=== PATIENT | male | born 1945 | race Caucasian/White ===

== ENCOUNTER 2018-02-08 16:49 | Inpatient (IN) | payer BC, OTHER ==
[~2018-02-08] VITALS: Ht 177.8 cm; Wt 104.8 kg
--- NOTE | 2018-02-08 17:05 | NUR ---
Pt ambulated to bed 6
--- NOTE | 2018-02-08 17:08 | NUR ---
Pt AAOx4 presents to ED c/o weakness to facial muscles x 2-3 weeks. Pt was referred to ED by PMD. Pt denies pain, but states "Everytime I chew my food, I take a couple bites and I'm too tired to continue eating." Skin pink dry and warm, breathing even and unlabored. No other injuries/complaints per pt/noted. Will continue to monitor.
[2018-02-08 17:10] VITALS: BP_SYST 175
--- NOTE | 2018-02-08 17:14 | NUR ---
ER at bedside examining patient.
[2018-02-08 17:54] LABS: EOSINOPHILS # (AUTO) 0.2 K/uL (0.0-0.4); EOSINOPHILS % (AUTO) 3.8 % (0.0-4.0); HEMATOCRIT 45.6 % (36-54); HEMOGLOBIN 15.7 g/dL (14.0-18.0); LYMPHOCYTES # (AUTO) 1.7 K/uL (1.0-5.5); LYMPHOCYTES % (AUTO) 33.4 % (20.5-51.5); MEAN CORPUSCULAR HEMOGLOBIN 30 pg (27-31); MEAN CORPUSCULAR HGB CONC 34 % (32-36); MEAN CORPUSCULAR VOLUME 87 fL (79.0-98.0); MONOCYTES # (AUTO) 0.4 K/uL (0.0-1.0); PLATELET COUNT (AUTO) 190 K/uL (130-430); RED BLOOD CELL COUNT(AUTO) 5.24 MIL/uL (4.2-6.2); RED CELL DISTRIBUTION WIDTH 13.8 % (9.0-15.0)
[2018-02-08 18:01] LABS: BASOPHILS % (AUTO) 0.4 % (0.0-2.0); CALCIUM 9.4 mg/dL (8.4-11.0); CREATININE 0.89 mg/dL (0.55-1.30); NEUTROPHILS # (AUTO) 2.7 K/uL (1.8-7.7); NEUTROPHILS % (AUTO) 54.4 % (40.0-70.0)
[2018-02-08 18:07] LABS: ALBUMIN 4.1 g/dL (3.4-4.8)
[2018-02-08 18:08] LABS: INR 1.1 (0.80-1.20); PROTHROMBIN TIME 10.9 SECS (9.5-12.5)
[2018-02-08] MEDS ORDERED: POTASSIUM CHLORIDE 20 MEQ/PKT PACKET PO ONE (18:30)
--- NOTE | 2018-02-08 18:36 | NUR ---
Potassium given to pt, tolerated well
[2018-02-08] MEDS ORDERED: NOR10 PO (18:43)
[2018-02-08] MEDS ORDERED: TAMS-11 PO (18:43)
[2018-02-08] MEDS ORDERED: DOCU-144 PO (18:43)
[2018-02-08] MEDS ORDERED: tramadol PO (18:43)
[2018-02-08] MEDS ORDERED: GLU500 PO (18:43)
[2018-02-08] MEDS ORDERED: VALS160T2 PO (18:43)
[2018-02-08] MEDS ORDERED: ASPI-1153 PO (18:43)
[2018-02-08] MEDS ORDERED: VITD2000 PO (18:43)
[2018-02-08] MEDS ORDERED: LIP10 PO (18:43)
[2018-02-08] MEDS ORDERED: METO50TA7 PO (18:43)
[2018-02-08] MEDS ORDERED: GABA-531 PO (18:43)
[2018-02-08] MEDS ORDERED: MULT-1117 PO (18:43)
--- NOTE | 2018-02-08 18:43 | NUR ---
Medication reconciliation completed with information provided by patient. Any prior medication reconciliation on file was reviewed and corrected.
[2018-02-08 18:45] LABS: ERYTHROCYTE SEDIMENTATION RATE 6 MM/HR (0-15)
--- NOTE | 2018-02-08 19:10 | NUR ---
ADMISSION NOTE Received patient from ER via lang, received report from CARBONIZER. Patient admitted with diagnosis of diplopia and dysarthia. Able to ambulate from doorway to bed independently without assistance. Patient's at the bedside with the patient. Patient oriented to hospital routine, call light, toileting and safety-patient verbalized understanding.
[2018-02-08 19:15] VITALS: BP_SYST 135
--- NOTE | 2018-02-08 19:17 | NUR ---
Patient will be admitted to [facility]. Admitted to Med Surg unit. Will go to room 116B. Belongings list completed. Summary report printed. Report will be given at bedside.
--- NOTE | 2018-02-08 19:35 | NUR ---
ADMISSION NOTE RECEIVED ADMISSION REPORT FROM ADMISSION NURSE. PATIENT AWAKE AND ALERT, ABLE TO VERBALIZE NEEDS A/0X4, BREATHING EVEN AND UNLABORED, NO PAIN NOTED, NEUROLOGIC ASSESSMENT DONE, PATIENT ON STABLE CONDITION. EXPLAINED THE PLAN OF CARE AND STATED UNDERSTANDING, WITH IV ON THE RAC 20G. ORIENTED TO THE FACILITY AND POLICIES, WILL CONTINUE TO MONITOR CALL LIGHT WITHIN REACH
--- NOTE | 2018-02-08 19:35 | NUR ---
NEURO CHECK DONE PATIENT WITH DROOPING OF THE LEFT EYE, PATIENT ABLE TO TALK WITH NO SLURRING OF SPEECH, ABLE TO TURN HEAD FROM SIDE TO SIDE WITH A LITTLE DISCOMFORT NAD PAIN LEVEL OF 2/10, AND STATED THAT IT IS TOLERABLE. UPPER AND LOWER EXTREMITIES WITH EQUAL AVIONICS SAFETY INSPECTOR AND STRENGTH, CAN EXTEND AND FLEX WITHOUT PAIN DIFFICULTY. PATIENT ABLE TO WALK WITH STEADY GAIT.
[2018-02-08 20:00] VITALS: BP_SYST 135
--- NOTE | 2018-02-08 22:30 | NUR ---
RN ROUNDS PATIENT ON BED SLEEPING AND RESTING BREATHING AND UNLABORED ON STABLE CONDITION NO COMPLAINTS NOTED WILL CONTINUE TO MONITOR CALL LIGHT WITHIN REACH.
--- NOTE | 2018-02-09 00:07 | NUR ---
RN ROUNDS PATIENT ON BED SLEEPING AND RESTING, ON STABLE CONDITION, NO COMPLAINTS NOTED OF NOW, WILL CONTINUE TO MONITOR. CALL LIGHT WITHIN REACH.
[2018-02-09 00:13] VITALS: BP_SYST 155
--- NOTE | 2018-02-09 00:28 | NUR ---
SPOKE WITH JAMEEL FOR CONSULT WITH DR FELDMAN.
[2018-02-09] MEDS: D5/0.45 NS 1,000 ML IV SCH ×2 (01:30→11:59)
--- NOTE | 2018-02-09 02:15 | NUR ---
RN ROUNDS PATIENT SLEEPING AND RESTING, ON STABLE CONDITION, BREATHING EVEN AND UNLABORED, WILL CONTINUE TO MONITOR.
--- NOTE | 2018-02-09 02:50 | NUR ---
PATIENT AMBULATED TO THE BATHROOM PATIENT AMBULATED TO THE BATHROOM TOLERATING WELL WITH STEADY GAIT, UPPER AND LOWER EXTREMITIES WITH ACTIVE ROM, STILL WITH FACIAL DROOP ON THE LEFT SIDE OF THE FACE, SPEECH IS CLEAR AND UNDERSTANDABLE, ABLE TO MAKE NEEDS KNOWN.
--- NOTE | 2018-02-09 04:15 | NUR ---
RN ROUNDS/NEURO CHECK PATIENT ON BED SLEEPING AND RESTING, BREATHING EVEN AND UNLABORED, NO SOB NOTED, NEURO CHECK DONE SAFETY MAINTAINED CALL LIGHT WITHIN REACH.
--- NOTE | 2018-02-09 06:39 | NUR ---
CLOSING NOTES PATIENT ON BED SLEEPING AND RESTING, BREATHING EVEN AND UNLABORED, MAINTAINED POSITION OF COMFORT AND SAFETY BED ON THE LOWEST POSITION, BED ALARM MAINTAINED. ENCOURAGED DEEP BREATHING AND RELAXATION, NO PAIN NOTED, EDUCATION GIVEN, NEURO CHECKS DONE. IV CLEAN DRY INTACT. WILL GIVE REPORT TO AM NURSE, WILL CONTINUE TO MONITOR CALL LIGHT WITHIN REACH
[2018-02-09 08:00] VITALS: BP_SYST 156
[2018-02-09] MEDS ORDERED: INSULIN REGULAR, HUMAN 100 UNITS/ML, 10 ML VIAL (novoLIN R) SUBCUT PRN (08:30)
[2018-02-09] MEDS ORDERED: COMMUNICATION ORDER XX ONE (08:30)
[2018-02-09] MEDS ORDERED: ACETAMINOPHEN 500 MG TABLET PO PRN (08:30)
[2018-02-09] MEDS ORDERED: ONDANSETRON HCL 4 MG/2 ML VIAL IVP PRN (08:30)
[2018-02-09] MEDS ORDERED: CALCIUM CARBONATE 500 MG/ TAB.CHEW PO PRN (08:30)
--- NOTE | 2018-02-09 08:41 | NUR ---
Cardiac consult called: for Dr. Edwards, regarding abnormal EKG, possible CVA, ordered by Dr. Lazo, spoke with Blue.
[2018-02-09] MEDS: TAMSULOSIN 0.4 MG PO SCH (09:00)
[2018-02-09] MEDS ORDERED: PANTOPRAZOLE SODIUM 40 MG TAB PO ONE (09:00)
--- NOTE | 2018-02-09 09:00 | NUR ---
Opening Note Report received from Yunior BACON. Patient is currently resting in bed. No signs of facial paralysis noted at the moment. IV is on the RAC 20g saline locked. No signs of distress noted. Call light is within reach and bed is in low position. Will continue to monitor.
--- NOTE | 2018-02-09 10:15 | NUR ---
Rounds Patient is currently resting in bed. No signs distress noted at the moment. Will continue to monitor.
[2018-02-09] MEDS: ASPIRIN 81 MG TABLET(ECOTRIN) PO SCH (10:17)
[2018-02-09] MEDS: CHOLECALCIFEROL (VITAMIN D3) 2,000 UNIT TABLET PO SCH ×2 (10:17→21:15)
[2018-02-09] MEDS: ATORVASTATIN 10 MG TABLET PO SCH (10:17)
[2018-02-09] MEDS: POTASSIUM CHLORIDE 20 MEQ TAB.PRT.SR PO SCH ×2 (10:17→21:14)
[2018-02-09] MEDS: DOCUSATE SODIUM 100 MG CAPSULE PO SCH (10:17)
[2018-02-09] MEDS: VALSARTAN 160 MG TABLET (DIOVAN) PO SCH (10:18)
[2018-02-09] MEDS: amLODIPine BESYLATE 5 MG TABLET PO SCH (10:18)
[2018-02-09] MEDS: METOPROLOL SUCCINATE 50 MG TAB.SR.24H (TOPROL XL) PO SCH (10:18)
[2018-02-09 12:00] VITALS: BP_SYST 170
[2018-02-09 12:03] LABS: FREE T4 (FREE THYROXINE) 0.7 ng/dL (0.6-1.6); THYROID STIMULATING HORMONE 1.13 uIu/mL (0.34-4.82)
--- NOTE | 2018-02-09 12:30 | NUR ---
Rounds Patient is sitting up in bed. Swallow eval is pending and will be done tomorrow. Call light is within reach and bed is in low position.
[2018-02-09] MEDS: PYRIDOSTIGMINE BROMIDE 60 MG TABLET PO SCH ×3 (13:44→21:15)
--- NOTE | 2018-02-09 13:44 | NUR ---
gilberto butt called: called [employer] [phone] and left message for Brandee.
--- NOTE | 2018-02-09 14:50 | NUR ---
RN Notes Patient left the unit for MRI.
[2018-02-09] MEDS ORDERED: IOHEXOL 100 ML IV ONE (15:40)
[2018-02-09 16:00] VITALS: BP_SYST 160
--- NOTE | 2018-02-09 16:49 | NUR ---
RN Note Patient returned from MRI and CT.
--- NOTE | 2018-02-09 18:38 | NUR ---
Closing Note Patient is currently resting in bed. IV is on the RAC20g running D51/2NS@90. Patient has been in stable condition throughout the shift. Call light is within reach and bed is in low position. Will endorse care to the oncoming nurse.
--- NOTE | 2018-02-09 19:15 | NUR ---
OPENING NOTES RECEIVED PATIENT IN BED AAO X4. BREATHING UNLABORED ON ROOM AIR. DENIES ANY PAIN. IVF INFUSING ORDERED. IV LINE INTACT TO RT AC. PLAN OF CARE REVIEWED WITH PATIENT. CALL LIGHT WITHIN EASY REACH. BED IN LOWEST LOCKED POSITION.
[2018-02-09] MEDS ORDERED: COMMUNICATION ORDER XX SCH (19:30)
[2018-02-09] MEDS ORDERED: TAMSULOSIN HCL 0.4 MG CAP PO ONE (19:30)
[2018-02-09 20:01] VITALS: BP_SYST 149
[2018-02-09] MEDS: GABAPENTIN 300 MG CAPSULE PO SCH (21:15)
--- NOTE | 2018-02-09 21:15 | NUR ---
MED PASS DUE MEDICATIONS GIVEN. ASPIRATION PRECAUTIONS OBSERVED. DENIES ANY PAIN. CALL LIGHT WITHIN EASY REACH.
--- NOTE | 2018-02-09 21:27 | NUR ---
paged paged for Dr Lazo, dialed . s/w Shawna.
--- NOTE | 2018-02-09 21:46 | NUR ---
DR. OAKLEY SPOKE WITH DR OAKLEY REGARDING ORDER FOR FINGER STICK GLUCOSE. ORDERED AC/HS. PER MD PATIENT HAS SINUS INFECTION ORDERED TO START LEVAQUIN 500 MG PO DAILY.
[2018-02-10 00:30] VITALS: BP_SYST 124
--- NOTE | 2018-02-10 00:30 | NUR ---
ROUNDS PATIENT RESTING IN BED. IVF CONT. INFUSING IV LINE INTACT. CALL LIGHT WITHIN EASY REACH. VITAL SIGNS STABLE.
--- NOTE | 2018-02-10 03:00 | NUR ---
ROUNDS PATIENT RESTING IN BED. NO DISTRESS NOTED. IVF CONTINUOUSLY INFUSING ORDERED. CALL LIGHT WITHIN REACH.
[2018-02-10] MEDS: D5/0.45 NS 1,000 ML IV SCH (06:26)
[2018-02-10] MEDS: PANTOPRAZOLE SODIUM 40 MG TAB PO SCH (06:38)
--- NOTE | 2018-02-10 06:46 | NUR ---
CLOSING NOTES PATIENT AWAKE RESTING IN BED. BREATHING UNLABORED ON ROOM AIR. IV LINE INTACT WITH IVF INFUSING. NEEDS ATTENDED. PLACED CALL LIGHT WITHIN EASY REACH. BED IN LOWEST LOCKED POSITION.
[2018-02-10 07:11] LABS: CALCIUM 9.1 mg/dL (8.4-11.0); CREATININE 0.73 mg/dL (0.55-1.30)
[2018-02-10 07:22] LABS: POTASSIUM 2.9 mmol/L (3.5-5.1)
--- NOTE | 2018-02-10 07:30 | NUR ---
opening note pt laying in bed awake alert, denies any chest pain/ shortness of breath. pt stated he is still having double vision, but is refusing the bed alarm. pt encouraged to call for help during ambulation. bed in lowest position, with call light in reach.
--- NOTE | 2018-02-10 07:33 | NUR ---
Juan Miguel WILKINS Paged Dr. Lazo in regards to critical lab.
--- NOTE | 2018-02-10 07:40 | NUR ---
Juan Miguel WILKINS Paged Dr. Talavera who is covering for Dr. Lazo in regards to the critical labs.
[2018-02-10 08:00] VITALS: BP_SYST 152
[2018-02-10] MEDS: PYRIDOSTIGMINE BROMIDE 60 MG TABLET PO SCH ×4 (08:58→20:47)
[2018-02-10] MEDS: DOCUSATE SODIUM 100 MG CAPSULE PO SCH (08:58)
[2018-02-10] MEDS: POTASSIUM CHLORIDE 20 MEQ TAB.PRT.SR PO SCH ×3 (08:58→20:48)
[2018-02-10] MEDS: CHOLECALCIFEROL (VITAMIN D3) 2,000 UNIT TABLET PO SCH ×2 (08:58→20:48)
[2018-02-10] MEDS: VALSARTAN 160 MG TABLET (DIOVAN) PO SCH (08:59)
[2018-02-10] MEDS: ASPIRIN 81 MG TABLET(ECOTRIN) PO SCH (08:59)
[2018-02-10] MEDS: ATORVASTATIN 10 MG TABLET PO SCH (08:59)
[2018-02-10] MEDS: METOPROLOL SUCCINATE 50 MG TAB.SR.24H (TOPROL XL) PO SCH (09:00)
[2018-02-10] MEDS: amLODIPine BESYLATE 5 MG TABLET PO SCH (09:00)
[2018-02-10] MEDS: TAMSULOSIN 0.4 MG PO SCH (09:00)
[2018-02-10] MEDS: TAMSULOSIN HCL 0.4 MG CAP PO SCH (09:01)
[2018-02-10] MEDS: LEVOFLOXACIN 500 MG TABLET PO SCH (09:04)
--- NOTE | 2018-02-10 09:06 | NUR ---
am meds morning meds given, po pt tolerated well, no distress noted, pt took one by one. safety maintained. pt still refusing bed alarm- pt encouraged to call for help during ambulation. pt stated he is still having double vision. bed in lowest position, with call light visibly within reach.
--- NOTE | 2018-02-10 09:26 | NUR ---
Nutrition Update Reno Scale 18 noted. Pt admitted for diplopia, dysarthria. Diet: mechanical soft BMI: 33.1 kg/m2 RD to follow per nutrition care standards.
--- NOTE | 2018-02-10 11:33 | NUR ---
blood sugar check blood sugar checked- 130 no coverage needed. no distress noted. pt still refusing bed alarm.
[2018-02-10 12:04] VITALS: BP_SYST 149
--- NOTE | 2018-02-10 14:29 | NUR ---
[id number] Swallow evaluation completed and reviewed recommendations with pt and JORDI Ramirez. Recommend mechanical soft chopped and thin liquids, advance as tolerated. Pls see evaluation for details. [id number] ch g8997 ch g8998 ch
--- NOTE | 2018-02-10 14:49 | NUR ---
MED PASS MESTINON PO GIVEN, 40 MEQ POTASSIUM PO GIVEN WELL, PT TOLERATED. WELL NO DISTRESS NOTED. SAFETY MAINTAINED.
--- NOTE | 2018-02-10 15:43 | NUR ---
Dietitian Recommendations * Recommend CCHO, cardiac, mechanical soft, chopped diet LP, RD Please refer to Nutrition Assessment for details.
[2018-02-10 16:06] VITALS: BP_SYST 142
--- NOTE | 2018-02-10 16:44 | NUR ---
accuckeck/ med pass blood sugar check-157 - 2 units reg insulin given. mestinon po given as well patient tolerated well, no distress noted.
--- NOTE | 2018-02-10 18:18 | NUR ---
closing note all needs met through shift, safety maintained, will endorse care to awake overnight counselor
[2018-02-10 20:00] VITALS: BP_SYST 157
--- NOTE | 2018-02-10 20:35 | NUR ---
Opening note Pt AAOx4, no acute distress or discomfort noted. IV R. AC 20G clear, patent. Call light/items within reach. Pt anxious to go home. Pt reminded re home med Flomax need to be used from home per Pharmacist. Pt refused bed alarm. Will continue to monitor pt.
[2018-02-10] MEDS: GABAPENTIN 300 MG CAPSULE PO SCH (20:47)
--- NOTE | 2018-02-10 20:53 | NUR ---
Blood sugar check/Pain mgmt Blood sugar check 108, no insulin indicated per protocol. Pt able to take Potassium pill crushed with applesauce. Aspiration precaution in place. Pt c/o back neck pain 09/03, offered Tylenol but pt refused. States he will try to get some rest. Encouraged to call if he changed his mind. Pt agreeable. Call light within reach. To monitor.
[2018-02-10] MEDS ORDERED: POTASSIUM CHLORIDE 20 MEQ TAB.PRT.SR PO SCH (21:00)
--- NOTE | 2018-02-10 23:15 | NUR ---
Rounds Pt asleep, easily arousable. Pt denies any pain at this time. Call light within easy reach. Will continue to monitor.
[2018-02-11 01:04] VITALS: BP_SYST 152
--- NOTE | 2018-02-11 01:15 | NUR ---
Rounds Pt asleep. No s/s distress noted. Call light within reach. Will continue to monitor.
--- NOTE | 2018-02-11 03:30 | NUR ---
Rounds Pt asleep. No s/s distress or discomforted noted. Call light within reach. Will continure to monitor pt.
[2018-02-11] MEDS: PANTOPRAZOLE SODIUM 40 MG TAB PO SCH (06:18)
--- NOTE | 2018-02-11 06:22 | NUR ---
Closing note Pt asleep, no c/o pain at this time. Blood sugar checked 121, no insulin indicated at this time. Call light within reach. Will continue to monitor. To endorse to am nurse.
[2018-02-11 07:20] LABS: CALCIUM 9.3 mg/dL (8.4-11.0); CREATININE 1.01 mg/dL (0.55-1.30); POTASSIUM 3.5 mmol/L (3.5-5.1)
--- NOTE | 2018-02-11 07:50 | NUR ---
oPENING NOTES RECEIVED PT IN BED, PT IS AAOX4, DENIES PAIN, SBP 156, AFBRILE, PT STATED HE FEELS BETTER NOW AND DENIES VERTICAL DOUBLE VISION THIS TIME. SL LOCK ON R. AC INTACT. SAFETY PRECAUTION IN PLACE. CALL LIGHT IN REACH, BED IN LOWEST POSITION. PT AMBULATORY WITH STEADY GAT, REFUSED BED ALARM. WILL CONT TO MONITOR.
[2018-02-11 08:00] VITALS: BP_SYST 157
[2018-02-11] MEDS: TAMSULOSIN HCL 0.4 MG CAP PO SCH (08:39)
[2018-02-11] MEDS: CHOLECALCIFEROL (VITAMIN D3) 2,000 UNIT TABLET PO SCH (08:39)
[2018-02-11] MEDS: DOCUSATE SODIUM 100 MG CAPSULE PO SCH (08:39)
[2018-02-11] MEDS: POTASSIUM CHLORIDE 20 MEQ TAB.PRT.SR PO SCH (08:39)
[2018-02-11] MEDS: PYRIDOSTIGMINE BROMIDE 60 MG TABLET PO SCH (08:39)
[2018-02-11] MEDS: ATORVASTATIN 10 MG TABLET PO SCH (08:39)
[2018-02-11] MEDS: ASPIRIN 81 MG TABLET(ECOTRIN) PO SCH (08:40)
[2018-02-11] MEDS: METOPROLOL SUCCINATE 50 MG TAB.SR.24H (TOPROL XL) PO SCH (08:41)
[2018-02-11] MEDS: VALSARTAN 160 MG TABLET (DIOVAN) PO SCH (08:41)
[2018-02-11] MEDS: amLODIPine BESYLATE 5 MG TABLET PO SCH (08:42)
[2018-02-11] MEDS: TAMSULOSIN 0.4 MG PO SCH (08:49)
--- NOTE | 2018-02-11 10:00 | NUR ---
rounds pt in bed, denies pain, no sob, no distress. call light in easy reach, bed in low position. will cont to monitor.
[2018-02-11] MEDS: LEVOFLOXACIN 500 MG TABLET PO SCH (10:38)
[2018-02-11 12:00] VITALS: BP_SYST 156
[2018-02-11] MEDS ORDERED: MES60 PO (12:15)
[2018-02-11] MEDS ORDERED: POTA20TA83 PO (12:17)
[2018-02-11 12:56] VITALS: BP_SYST 156
--- NOTE | 2018-02-11 13:45 | NUR ---
D/C Patient Patient given medication reconciliation form and transitional care instructions. Exit Care provided. Patient verbalized understanding. MD discussed with patient the results and treatment provided. Ambulatory with steady gait for discharge to home. Patient in stable condition, ID band removed. IV catheter removed, intact and dressing applied, no active bleeding. Rx for k-dur and Mestinon given. Patient educated on pain management. All belongings sent with patient.
[2018-02-11 14:28] LABS: RED BLOOD CELL COUNT(AUTO) 5.68 MIL/uL (4.2-6.2); WHITE BLOOD COUNT (AUTO) 6.2 K/uL (4.8-10.8)
[2018-02-11 14:29] LABS: HEMATOCRIT 49.4 % (36-54); HEMOGLOBIN 16.2 g/dL (14.0-18.0); LYMPHOCYTES % (AUTO) 30.8 % (20.5-51.5); MEAN CORPUSCULAR HEMOGLOBIN 29 pg (27-31); MEAN CORPUSCULAR HGB CONC 33 % (32-36); MEAN CORPUSCULAR VOLUME 87 fL (79.0-98.0); MONOCYTES % (AUTO) 8.3 % (1.7-9.3); NEUTROPHILS % (AUTO) 57.2 % (40.0-70.0); PLATELET COUNT (AUTO) 198 K/uL (130-430); RED CELL DISTRIBUTION WIDTH 14.8 % (9.0-15.0)
[2018-02-11 14:30] LABS: BASOPHILS % (AUTO) 0.7 % (0.0-2.0); EOSINOPHILS # (AUTO) 0.2 K/uL (0.0-0.4); LYMPHOCYTES # (AUTO) 1.9 K/uL (1.0-5.5); MONOCYTES # (AUTO) 0.5 K/uL (0.0-1.0); NEUTROPHILS # (AUTO) 3.6 K/uL (1.8-7.7)
== END 2018-02-11 13:45 | disposition home or self-care (01) | DRG 74 ==
LOC: SED 16:49 → SMU 18:48 → STU 02-09 10:10
PROVIDERS: ADMIT Internal Medicine; ATTEND Internal Medicine
DX: G70.89 Other specified myoneural disorders (principal); H49.00 Third [oculomotor] nerve palsy, unspecified eye; E11.22 Type 2 diabetes mellitus with diabetic chronic kidney disease; E11.42 Type 2 diabetes mellitus with diabetic polyneuropathy; I12.9 Hypertensive chronic kidney disease with stage 1 through stage 4 chronic kidney disease, or unspecified chronic kidney disease; H53.2 Diplopia; E78.5 Hyperlipidemia, unspecified; R13.10 Dysphagia, unspecified; E87.6 Hypokalemia; N40.0 Benign prostatic hyperplasia without lower urinary tract symptoms; N18.2 Chronic kidney disease, stage 2 (mild); M19.90 Unspecified osteoarthritis, unspecified site; E66.01 Morbid (severe) obesity due to excess calories; I49.1 Atrial premature depolarization; R20.2 Paresthesia of skin; K76.0 Fatty (change of) liver, not elsewhere classified; M50.30 Other cervical disc degeneration, unspecified cervical region; Z86.010 Personal history of colon polyps; Z88.0 Allergy status to penicillin; Z79.82 Long term (current) use of aspirin; Z79.899 Other long term (current) drug therapy; Z68.33 Body mass index [BMI] 33.0-33.9, adult; Z90.49 Acquired absence of other specified parts of digestive tract; Z98.49 Cataract extraction status, unspecified eye; Z82.3 Family history of stroke
CPT/HCPCS: 36415; 70450-TC; 70540; 70551; 71045; 71270-TC; 80048; 80053; 80061; 82962; 83735-TC; 84439; 84443-TC; 84484; 84999-TC; 85025; 85610-TC; 85651-TC; 85730-TC; 92610-GN; 93005; 99285; Q9967